=== PATIENT | female | born 1965 | race Caucasian/White ===

== ENCOUNTER → 2022-05-29 09:52 | Outpatient (CLI) | payer OTHER, SELFPAY | PROVIDERS: Visit Provider Physician Assistant | DX: N34.3 Urethral syndrome, unspecified (principal) | CPT/HCPCS: 87077; 87086; 87186 ==

== ENCOUNTER 2022-09-18 11:26 | Emergency (ER) | payer OTHER, SELFPAY ==
[2022-09-18] VITALS (8 sets, daily range): BP systolic 138–152; BP diastolic 76–90; PULSE 91–115; RESP 16; TEMP 36.4; O2SAT 96–98; BMI 28.2
--- NOTE | 2022-09-18 12:12 | ED_ITS ---
HPI - Epistaxis <BILLY Beasley - Last Filed: 09/18/22 16:32> General Chief complaint: Nasal Problem Stated complaint: nose bleed since 830 this morning Time Seen by Provider: 09/18/22 12:07 Mode of arrival: Ambulatory History of Present Illness HPI Narrative: This is a 57-year-old female who presents to the emergency department complaining of epistaxis which started at 08:30 this morning, states it stopped for approximately 1 breakfast this morning and then after she returned it started bleeding again. She denies history of nosebleeds but states that she has had 2 sinus surgeries in the past for chronic sinusitis. Her ENT is with [facility] Dr. Iglesias. She denies recent history congestion, allergies, difficulty breathing, weak or lightheadedness, recent trauma. She states that when she has surgery they thought she had a deviated septum but ended up having chronic sinus and this was all repaired. She has not had any issues previously. Patient states she feels nauseated but has not been vomiting, states that the blood was pouring fairly heavily from her left naris. She is not on anticoagulants. She lives locally, has not had any recent trauma or felt upper respiratory illness symptoms. Related Data Previous Rx's Medication Instructions Recorded fluconazole 150 mg tablet 150 mg PO Q3D 2 doses #2 tabs 05/29/22 alprazolam 0.5 mg tablet 0.5 mg PO DAILY PRN anxiety #14 09/18/22 tabs amlodipine 5 mg tablet 5 mg PO DAILY #3 tabs 09/18/22 budesonide 3 mg 9 mg PO DAILY 3 days #9 ea 09/18/22 capsule,delayed,extended release hydrocodone 5 mg-acetaminophen 325 1 tab PO TID PRN pain #14 tabs 09/18/22 mg tablet liothyronine 25 mcg tablet 25 mcg PO DAILY #3 tabs 09/18/22 trazodone 100 mg tablet 200 mg PO BEDTIME 3 days #6 tabs 09/18/22 Allergies Allergy/AdvReac Type Severity Reaction Status Date / Time Sulfa (Sulfonamide Allergy Unknown Unverified 05/29/22 10:02 Antibiotics) Review of Systems <BILLY Beasley - Last Filed: 09/18/22 16:32> Review of Systems Narrative: Review of systems is negative for acute abnormalities unless otherwise noted in HPI Patient History <BILLY Beasley - Last Filed: 09/18/22 16:32> Social History Smoking Status: Former smoker Smoking Status: Former smoker Substance Use Type: does not use Exam <BILLY Beasley - Last Filed: 09/18/22 16:32> Initial Vital Signs Initial Vital Signs: Vital Signs Temperature 97.6 F 09/18/22 11:36 Pulse Rate 115 H 09/18/22 11:36 Respiratory Rate 16 09/18/22 11:36 Blood Pressure 144/90 H 09/18/22 11:36 Pulse Oximetry 96 09/18/22 11:36 Oxygen Delivery Method 09/18/22 11:36 HENMT Nose: external nose normal and epistaxis (Left nares) Eyes General: Yes appearance normal, both eyes and all related structures <Alejandro Espinoza MD - Last Filed: 09/18/22 18:46> Initial Vital Signs Initial Vital Signs: Vital Signs Temperature 97.6 F 09/18/22 11:36 Pulse Rate 115 H 09/18/22 11:36 Respiratory Rate 16 09/18/22 11:36 Blood Pressure 144/90 H 09/18/22 11:36 Pulse Oximetry 96 09/18/22 11:36 Oxygen Delivery Method 09/18/22 11:36 Procedures <BILLY Beasley - Last Filed: 09/18/22 16:32> Epistaxis Control Time Out Performed: Yes Nostril: left Nose Prepped With: oxymetazoline Direct Inspection: unable to visualize Clots Removed by: blowing nose and suction Cautery Used: none Device Inserted: nasal tampon Device Size: 5 Patient Tolerated Procedure: well and other (Patient had left eye tearing after nasal tampon was initially in place, concern for obstruction of nasal lacrimal duct, 0.5 mL of air was removed and patient tolerated better without hearing) Course <BILLY Beasley - Last Filed: 09/18/22 16:32> Orders Ordered: Discontinued Medications Acetaminophen (Acetaminophen 325 Mg Tablet) 975 mg PO NOW ONE Stop: 09/18/22 13:12 Last Admin: 09/18/22 13:14 Dose: 975 mg Documented By: GRIS Hydrocodone Bitart/Acetaminophen (Hydrocodone/Acet 5/325 Tablet) 1 tab PO NOW ONE Stop: 09/18/22 13:05 Last Admin: 09/18/22 13:10 Dose: Not Given Documented By: GRIS Alprazolam (Alprazolam 0.5 Mg Tablet) 0.5 mg PO NOW ONE Stop: 09/18/22 13:46 Last Admin: 09/18/22 13:51 Dose: 0.5 mg Documented By: GRIS Ondansetron HCl (Ondansetron 4 Mg Odt) 4 mg SL NOW ONE Stop: 09/18/22 12:36 Last Admin: 09/18/22 12:45 Dose: 4 mg Documented By: GRIS Oxycodone HCl (Oxycodone Ir 5 Mg Tablet) 5 mg PO NOW ONE Stop: 09/18/22 13:46 Last Admin: 09/18/22 13:51 Dose: 5 mg Documented By: GRIS Oxymetazoline HCl (Oxymetazoline Nasal [place] 15 Ml) 2 sprays NASAL NOW ONE Stop: 09/18/22 12:12 Last Admin: 09/18/22 12:18 Dose: 2 sprays Documented By: FRANCIA Silver Nitrate/Potassium Nitrate (Silver Nitrate Stick) 1 each TOP NOW ONE Stop: 09/18/22 12:12 Last Admin: 09/18/22 12:18 Dose: 1 each Documented By: FRANCIA Consultations Consultation #1: Had Dr. Recinos come see the patient with me as her left nares hemorrhage was heavier than anticipated and I was not able to visualize where the bleed was coming from. Oxymetazoline with pressure failed to stop epistaxis, a 5.5 cm nasal tampon/rhino rocket was placed and patient tolerated well./had pain but ultimately tolerated well. Vital Signs Vital signs: Vital Signs - 8 hr 09/18/22 11:36 09/18/22 13:25 09/18/22 13:25 Temperature 97.6 F Pulse Rate 115 H 97 H Respiratory Rate 16 Blood Pressure 144/90 H 138/85 Pulse Oximetry 96 98 Oxygen Delivery Method Room Air 09/18/22 13:30 09/18/22 13:31 09/18/22 13:31 Temperature Pulse Rate 91 H 93 H Respiratory Rate Blood Pressure 147/87 H Pulse Oximetry 97 96 Oxygen Delivery Method 09/18/22 13:45 09/18/22 13:45 09/18/22 13:53 Temperature Pulse Rate 96 H 107 H Respiratory Rate Blood Pressure 151/83 H Pulse Oximetry 96 96 Oxygen Delivery Method 09/18/22 13:53 09/18/22 13:56 09/18/22 13:56 Temperature Pulse Rate 96 H Respiratory Rate Blood Pressure 145/82 H 152/85 H Pulse Oximetry 96 Oxygen Delivery Method 09/18/22 14:00 09/18/22 14:00 Temperature Pulse Rate 97 H Respiratory Rate Blood Pressure 143/76 H Pulse Oximetry 98 Oxygen Delivery Method <Alejandro Espinoza MD - Last Filed: 09/18/22 18:46> Orders Ordered: Discontinued Medications Acetaminophen (Acetaminophen 325 Mg Tablet) 975 mg PO NOW ONE Stop: 09/18/22 13:12 Last Admin: 09/18/22 13:14 Dose: 975 mg Documented By: GRIS Hydrocodone Bitart/Acetaminophen (Hydrocodone/Acet 5/325 Tablet) 1 tab PO NOW ONE Stop: 09/18/22 13:05 Last Admin: 09/18/22 13:10 Dose: Not Given Documented By: GRIS Alprazolam (Alprazolam 0.5 Mg Tablet) 0.5 mg PO NOW ONE Stop: 09/18/22 13:46 Last Admin: 09/18/22 13:51 Dose: 0.5 mg Documented By: GRIS Ondansetron HCl (Ondansetron 4 Mg Odt) 4 mg SL NOW ONE Stop: 09/18/22 12:36 Last Admin: 09/18/22 12:45 Dose: 4 mg Documented By: GRIS Oxycodone HCl (Oxycodone Ir 5 Mg Tablet) 5 mg PO NOW ONE Stop: 09/18/22 13:46 Last Admin: 09/18/22 13:51 Dose: 5 mg Documented By: GRIS Oxymetazoline HCl (Oxymetazoline Nasal [place] 15 Ml) 2 sprays NASAL NOW ONE Stop: 09/18/22 12:12 Last Admin: 09/18/22 12:18 Dose: 2 sprays Documented By: FRANCIA Silver Nitrate/Potassium Nitrate (Silver Nitrate Stick) 1 each TOP NOW ONE Stop: 09/18/22 12:12 Last Admin: 09/18/22 12:18 Dose: 1 each Documented By: FRANCIA Vital Signs Vital signs: Vital Signs - 8 hr 09/18/22 11:36 09/18/22 13:25 09/18/22 13:25 Temperature 97.6 F Pulse Rate 115 H 97 H Respiratory Rate 16 Blood Pressure 144/90 H 138/85 Pulse Oximetry 96 98 Oxygen Delivery Method Room Air 09/18/22 13:30 09/18/22 13:31 09/18/22 13:31 Temperature Pulse Rate 91 H 93 H Respiratory Rate Blood Pressure 147/87 H Pulse Oximetry 97 96 Oxygen Delivery Method 09/18/22 13:45 09/18/22 13:45 09/18/22 13:53 Temperature Pulse Rate 96 H 107 H Respiratory Rate Blood Pressure 151/83 H Pulse Oximetry 96 96 Oxygen Delivery Method 09/18/22 13:53 09/18/22 13:56 09/18/22 13:56 Temperature Pulse Rate 96 H Respiratory Rate Blood Pressure 145/82 H 152/85 H Pulse Oximetry 96 Oxygen Delivery Method 09/18/22 14:00 09/18/22 14:00 Temperature Pulse Rate 97 H Respiratory Rate Blood Pressure 143/76 H Pulse Oximetry 98 Oxygen Delivery Method MDM - Epistaxis <BILLY Beasley - Last Filed: 09/18/22 16:32> MDM Narrative Medical decision making narrative: This is a 57-year-old female without significant medical history and is not anticoagulated who presents to the emergency department with left-sided epistaxis since 06/21 this morning, states that it stopped after holding pressure for 1 hour while she ate breakfast and then proceeded to start bleeding again. After hours of holding pressure, she still had flowing blood out of the left nares without ability to locate where the bleed was coming from. Nasal tampon was placed, patient tolerated well with pain, after observation for 2 hours, patient did not have any bleeding down the posterior pharynx, there was no dripping of blood, and hemorrhage appears to be controlled with 6.5 mL of air in the nasal tampon balloon. Patient's tearing resolved after 0.5 mL of air was removed without further bleeding and patient was rechecked multiple times. She had anxiety and pain during her visit today which is likely the reason for her tachycardia. She was given Zofran for nausea but did not have any vomiting and tolerated p.o.. She understands to follow-up with her previous ENT or Dr. Christopher within the next 24-48 hours for a recheck and to have her nasal tampon removed. She was given antipyretics and anxiolytics. Patient is appropriate and amenable to discharge home. Vital signs are stable on repeat examination is unremarkable. Patient has been informed of results. Patient has been given strict return to ER precautions for any new or worsening symptoms. Patient understands to follow up closely with outpatient providers as instructed. Patient understands plan and agrees to discharge home. All questions and concerns answered at this time. Discharge Plan Departure Patient Disposition: Home Clinical Impression: Epistaxis Instructions: Nosebleed, Phenylephrine Nasal [place] Activity Restrictions/Additional Instructions: *You have been diagnosed with a difficult to control nosebleed. Please leave this nasal tampon in place, also called a rhino rocket, until you follow-up with ear nose and throat tomorrow or the next day. Please call office of Dr. Casey Christopher tomorrow morning and asked to be seen in the next 2 days and the nasal tampon removed. You have a size small, 5.[address] I am sorry for your discomfort. Please take Tylenol and/or a pain pill as needed for your pain. Drink plenty of water, please come back to the emergency department if you have bleeding in your throat. I hope you do just fine. I have attached other ENT offices for you if you are not able to get in in the next [address] Christopher, there is [facility] and Dr. Iglesias's info below. You have 6.5 mL air in the balloon *What to do: *Please continue to take your regular medications as directed. [ x New medication prescriptions sent to your pharmacy: [ [facility]] [ ] New medication written as a paper prescription [ ] No new medications given Dr. Diomedes Iglesias [place] [address] [place] [address] *Please follow up with your primary care provider in 2-3 days, call for an appointment. Let them know you were seen in the Emergency Department and that we asked that you be seen for follow-up. We will electronically transmit a record of today's note if your PCP is in our system *If you do not have a primary care provider please contact [phone] to establish care with one of the [facility] primary care providers. *Return to Emergency Department if you should have any new, worsening, or concerning symptoms, such as [fever greater than 101F, chills, worsening pain, persistent vomiting or other bothersome symptoms]. Prescriptions: New amlodipine 5 mg tablet 5 mg PO DAILY Qty: 3 0RF trazodone 100 mg tablet 200 mg PO BEDTIME 3 Days Qty: 6 0RF liothyronine 25 mcg tablet 25 mcg PO DAILY Qty: 3 0RF budesonide 3 mg capsule,delayed,extend.release 9 mg PO DAILY 3 Days Qty: 9 0RF alprazolam 0.5 mg tablet 0.5 mg PO DAILY PRN (Reason: anxiety) Qty: 14 0RF hydrocodone-acetaminophen 5-325 mg tablet 1 tab PO TID PRN (Reason: pain) Qty: 14 0RF No Action fluconazole 150 mg tablet 150 mg PO Q3D Qty: 2 0RF Rx Instructions: may repeat second dose 72 hrs after first dose if symptoms persist Referrals: [facility] [Outside] Casey Christopher MD [Physician] - Visit Report Forms: Patient Portal/API <Alejandro Espinoza MD - Last Filed: 09/18/22 18:46> [facility]: I personally evaluated and examined the patient and agree with the assessment, treatment plan, and disposition of the patient as recorded by the APC.
[2022-09-18] MEDS: SILVER NITRATE STICK 1 EACH TOP (12:18)
[2022-09-18] MEDS: OXYMETAZOLINE NASAL SPRAY 15 ML 2 SPRAYS NASAL (12:18)
[2022-09-18] MEDS: ONDANSETRON 4 MG ODT SL (12:45)
[2022-09-18] MEDS: ACETAMINOPHEN 325 MG TABLET 975 MG PO (13:14)
[2022-09-18] MEDS: ALPRAZolam 0.5 MG TABLET PO (13:51)
[2022-09-18] MEDS: OXYCODONE IR 5 MG TABLET PO (13:51)
== END 2022-09-18 14:05 | disposition home or self-care (01) ==
PROVIDERS: Emergency Provider Nurse Practitioner Critical Care Medicine
DX: R04.0 Epistaxis (principal)
CPT/HCPCS: 30901; 99283; A9270